=== PATIENT | female | born 1980 | race Hispanic/Latino ===

== ENCOUNTER 2018-09-26 13:03 | Emergency (ER) | payer OTHER ==
--- NOTE | 2018-09-26 13:14 | Emergency Department Report ---
Chief Complaint: Shoulder Injury Stated Complaint: (R) SHOULDER/WRIST PAIN Time Seen by Provider: 09/26/18 13:13 - HPI History of Present Illness: TRIPPED IN TRAILER AND FELL OUT OF TRAILER PAIN R SHOULDER AND WRIST THIS OCCURRED LAST WEEK RX NONE NO CIG PMH NONE LMP 1 M AGO PSH NONE MSE COMPLETED MSE screening note: Focused history and physical exam performed. Due to findings the following was ordered: ED Disposition for MSE Condition: Stable
[2018-09-26] MEDS ORDERED: IBUPROFEN PO ONE (13:15)
--- NOTE | 2018-09-26 14:27 | XRay Report ---
RIGHT SHOULDER, 3 VIEWS: HISTORY: Pain status post fall. Normal bone mineralization. No acute osseous injury or joint pathology is detected. The soft tissues are unremarkable. IMPRESSION: Right shoulder within normal limits.
--- NOTE | 2018-09-26 14:27 | XRay Report ---
RIGHT WRIST, 4 VIEWS: History: Pain status post fall. Routine views demonstrate the carpal bones to be well mineralized with well preserved bony mineralization and interosseous joint spaces. The carpal and adjacent articular bones have normal contours. The surrounding soft tissues are unremarkable. IMPRESSION: Unremarkable right wrist.
--- NOTE | 2018-09-26 14:33 | Emergency Department Report ---
HPI - General Chief Complaint: Shoulder Injury Time Seen by Provider: 09/26/18 13:13 - HPI HPI: pain in right shoulder and right wrist after fall a week ago. decrease range of motion, pain is sharp and 4/10. no swelling. ED Past Medical Hx - Past Medical History Previous Medical History?: No - Surgical History Past Surgical History?: Yes Additional Surgical History: melanoma removed. LEEP procedure. tonsillectomy - Social History Smoking Status: Never Smoker Substance Use Type: None - Medications Home Medications: Home Medications Medication Instructions Recorded Confirmed Last Taken Type Acetaminophen/Codeine [Tylenol #3] 1 tab PO Q6H PRN #12 tab 04/03/13 Unknown Rx Sulfamethoxazole/Trimethoprim 1 each PO BID #20 tablet 04/03/13 Unknown Rx [Bactrim DS] Cyclobenzaprine [Flexeril] 10 mg PO TID PRN #10 tablet 09/26/18 Unknown Rx ED Review of Systems ROS: Stated complaint: (R) SHOULDER/WRIST PAIN Other details as noted in HPI Constitutional: denies: see HPI Eyes: denies: eye pain ENT: denies: ear pain Genitourinary: denies: urgency Musculoskeletal: joint swelling. denies: back pain Physical Exam - Physical Exam Vital Signs: Vital Signs 09/26/18 13:13 Temperature 98.1 F Pulse Rate 89 Respiratory 18 Rate Blood Pressure 128/80 O2 Sat by Pulse 99 Oximetry Physical Exam: Physical Exam: - General Limitations: No Limitations General appearance: alert, in no apparent distress. - Head Head exam: Present: atraumatic, normocephalic - Eye Eye exam: Present: normal appearance - ENT ENT exam: Present: mucous membranes moist - Neck Neck exam: Present: normal inspection - Respiratory Respiratory exam: Present: normal lung sounds bilaterally. Absent: respiratory distress - Cardiovascular Cardiovascular Exam: Present: normal rhythm. Absent: systolic murmur, diastolic murmur, rubs, gallop - GI/Abdominal GI/Abdominal exam: Present: soft, normal bowel sounds - Extremities Exam Extremities exam: Present: tenderness, right shoulder to palpation, right wrist tenderness to palpation. - Back Exam Back exam: Present: normal inspection - Neurological Exam Neurological exam: Present: alert, oriented X3 - Psychiatric Psychiatric exam: normal affect and mood - Skin Skin exam: Present: warm, dry, intact, normal color. Absent: rash ED Course Vital Signs 09/26/18 13:13 Temperature 98.1 F Pulse Rate 89 Respiratory 18 Rate Blood Pressure 128/80 O2 Sat by Pulse 99 Oximetry Critical care attestation.: If time is entered above; I have spent that time in minutes in the direct care of this critically ill patient, excluding procedure time. ED Disposition Clinical Impression: Contusion of right shoulder Qualifiers: Encounter type: initial encounter Qualified Code(s): S40.011A - Contusion of right shoulder, initial encounter Contusion of right wrist Qualifiers: Encounter type: initial encounter Qualified Code(s): S60.211A - Contusion of right wrist, initial encounter Disposition: TO HOME OR SELFCARE Is pt being admited?: No Does the pt Need Aspirin: No Condition: Stable Instructions: Contusion in Adults (ED) Prescriptions: Cyclobenzaprine [Flexeril] 10 mg PO TID PRN #10 tablet PRN Reason: Muscle Spasm Referrals: [facility] MD AD [Primary Care Provider] - 3-5 Days LATOYA SIERRA MD [Staff Physician] - 3-5 Days
[2018-09-26 21:00] VITALS: BP 128/80
== END 2018-09-26 14:46 | disposition home or self-care (01) ==
LOC: ED 13:03
DX: S40.011A Contusion of right shoulder, initial encounter (principal); S60.211A Contusion of right wrist, initial encounter; Z90.89 Acquired absence of other organs; Z88.0 Allergy status to penicillin; W01.0XXA Fall on same level from slipping, tripping and stumbling without subsequent striking against object, initial encounter; Y93.89 Activity, other specified; Y92.89 Other specified places as the place of occurrence of the external cause; Y99.8 Other external cause status